=== PATIENT | female | born 1930 | race Caucasian/White ===

== ENCOUNTER 2018-11-22 12:23 | Inpatient (IN) ==
--- NOTE | 2018-11-22 12:47 | PROVIDER DOCUMENTATION ---
HPI-General Adult - General Stated Complaint: N/V, HIP/BACK PAIN Time Seen by Provider: 11/22/18 12:37 Source: patient Allergies/Adverse Reactions: Patient Allergies Allergy/AdvReac Type Severity Reaction Status Date / Time codeine [Codeine] Allergy Intermediate NAUSEA/VOMI Verified 11/22/18 14:47 TING iodine Allergy Intermediate SWELLING Verified 11/22/18 14:47 lidocaine Allergy Intermediate Unknown Verified 11/22/18 14:47 meperidine HCl * Allergy Intermediate NAUSEA/VOMI Verified 11/22/18 14:47 [From Demerol] TING mepivacaine HCl * Allergy Intermediate Unknown Verified 11/22/18 14:47 [From Carbocaine] morphine Allergy Intermediate NAUSEA/VOMI Verified 11/22/18 14:47 TING Penicillins Allergy Intermediate SWELLING Verified 11/22/18 14:47 procaine HCl * Allergy Intermediate Unknown Verified 11/22/18 14:47 [From Novocain] Sulfa (Sulfonamide Allergy Intermediate RASH Verified 11/22/18 14:47 Antibiotics) Home Medications: Home Medication List Medication Instructions Recorded Confirmed Last Taken Type Levothyroxine [Synthroid] 75 mcg PO DAILY 07/11/12 11/22/18 11/22/18 History Simvastatin [Zocor] 1 tab PO HS 07/11/12 11/22/18 11/21/18 History Sotalol [Betapace] 40 mg PO BID 07/11/12 11/22/18 11/22/18 History Potassium Chloride E.r. [Klor-Con] 10 meq PO DAILY 10/25/17 11/22/18 11/22/18 History Prednisone 2 mg PO DAILY 10/25/17 11/22/18 11/21/18 History Warfarin Sodium [Coumadin] 3 mg PO QHS 10/25/17 11/22/18 11/21/18 History - History of Present Illness -Gen Adult Nature of Presenting Problems: Pt. is 88 yof that presents with c/o right hip pain,CRAVEN and N/V after getting dizzy and falling. She reports she is on blood thinners and has A-fib. EMS reports patient vomited three times on the way here. Location of Pain/Injury: reports: head, pelvis. denies: none, face, mouth, neck, chest, upper extremity, hand(s), abdomen, back, genitalia, lower extremity, feet, upper body, lower body, generalized, other Pain Radiation: reports: no radiation. denies: arm(s), back, buttocks, chest, epigastric, feet, groin, jaw, flank (L), legs (lower), LLQ, LUQ, neck, periumbilical, flank (R), RLQ, RUQ, shoulder(s), scapula, scrotal, sternal notch, suprapubic, legs (upper), urethral, vaginal, other Quality of Pain: reports: aching. denies: burning, sharp, tightness Severity: reports: mild. denies: moderate, severe Onset/Duration: reports: abrupt, just prior to arrival Timing: reports: still present. denies: improving, intermittent, changing over time Context/Activities at Onset: reports: light activity, recent trauma history. denies: none, moderate activity, vigorous activity, recent emotional stress, recent physical stress, possible bad food, cold exposure, eating, out of country travel, rest, sleep, sexual activity, other Modifying Factors: improves with: immobilization. worse with: movement Associated Symptoms: reports: headaches, joint pain (Right hip), nausea, vomiting. denies: denies symptoms, anxiety, arm pain, back/neck pain, chest pain, constipation, cough, diaphoresis, diarrhea, dizziness, EENT symptoms, fatigue, fever/chills, genitourinary problems, heartburn, loss of appetite, malaise, muscle aches, sinus congestion/drainage, rash, seizure, shortness of breath, sensory/motor loss, pain with inspiration, swelling/mass in abdomen, syncope, weakness, trouble walking, other Similar Symptoms Previously?: No Recently seen or treated by another doctor?: No Review of Systems - Adult - REVIEW OF SYSTEMS - ADULT Constitutional: reports: no symptoms reported Eyes: reports: no symptoms reported Ears, Nose, Mouth & Throat: reports: no symptoms reported Cardiovascular: reports: see HPI, syncope. denies: chest pain, heart murmur, orthopnea Respiratory: reports: no symptoms reported Gastrointestinal: reports: see HPI, nausea, vomiting. denies: hematemesis, diarrhea, difficulty swallowing Genitourinary: reports: no symptoms reported Musculoskeletal: reports: see HPI, joint pain (Right hip). denies: back pain, muscle aches, neck pain Integumentary: reports: no symptoms reported Neurological: reports: see HPI, dizziness/vertigo, headache/migraines, syncope. denies: numbness, seizure, tremors Psychiatric: reports: no symptoms reported Past History - Adult - PAST MEDICAL HISTORY-ADULT Review of Records: reports: Old Records Reviewed, Nursing Assessment Review, Medications Reviewed, Social history reviewed & non-contributory. Major Childhood Illnesses: reports: denies history Cardiovascular: reports: HTN Respiratory: reports: COPD Gastrointestinal: reports: denies history Obstetrical/Gynecological: reports: denies history Genitourinary: reports: chronic UTI's Musculoskeletal: reports: denies history Neurological: reports: denies history Endocrine/Immune: reports: thyroid disorder Other Conditions: reports: denies history - PRIOR SURGERIES/PROCEDURES Surgical/Procedure History: reports: hysterectomy, breast - IMMUNIZATION STATUS Childhood Immunizations: See Nurse Assessment Flu Vaccine: See Nurse Assessment - FAMILY HISTORY Family History: reviewed, not pertinent - SOCIAL HISTORY Smoking: non-smoker Physical Exam-General - PHYSICAL EXAM-ADULT Initial Vital Signs Reviewed: Yes - CONSTITUTIONAL General Appearance: alert, moderate distress. negative: anxious, slow to respond, obtunded, combative - EYES Eyes: PERRL/EOMI, pink conjunctivae - HEAD, EARS, NOSE, MOUTH & THROAT HENMT: normocephalic/atraumatic, moist mucous membranes - NECK Neck: non-tender, full range of motion, supple, normal inspection - RESPIRATORY Respiratory: lungs clear, normal breath sounds - CARDIOVASCULAR Cardiovascular: normal peripheral pulses, no edema, irregularly irregular - GASTROINTESTINAL (ABDOMEN) Abdominal Exam: normal bowel sounds, non tender, soft - LYMPHATIC Lymphatic: no adenopathy - MUSCULOSKELETAL Back Exam: normal inspection, no CVA tenderness, no vertebral tenderness Extremity: tenderness (Right hip). negative: deformity, erythema, swelling Peripheral Pulses: radial (R): 2+, radial (L): 2+ - SKIN Integumentary: normal color, normal turgor, warm/dry - NEUROLOGIC Neurologic: grossly normal, no motor/sensory deficits - PSYCHIATRIC Psych/Mental Status: normal mood/affect, normal thought content, normal thought process, oriented x 3. negative: anxious, paranoid, tearful Progress - PLAN OF CARE/RESULTS Progress/Plan/Lab Results: Orders Category Date Time Status Saline Loc NOW Care 11/22/18 12:43 Active CHEST-1 VIEW [RAD] Stat Exams 11/22/18 12:[address] HEAD/C-SPINE W/O CONTRAST [CT] Stat Exams 11/22/18 12:[address] PELVIS W/O CONTRAST [CT] Stat Exams 11/22/18 12:45 Ordered CBC WITH ELECTRONIC DIFF [HEME] Stat Lab 11/22/18 12:44 Uncollected CK PROFILE [SP CHEM] Stat Lab 11/22/18 12:44 Uncollected COMPREHENSIVE METABOLIC PANEL [CHEM] Stat Lab 11/22/18 12:44 Uncollected PROTIME WITH INR [COAG] Stat Lab 11/22/18 12:44 Uncollected PTT [COAG] Stat Lab 11/22/18 12:44 Uncollected TROPONIN T Stat Lab 11/22/18 12:44 Uncollected URINALYSIS W/POSS RFLX CULT [URINALYSIS] Stat Lab 11/22/18 12:44 Uncollected EKG [EKG] Stat Ther 11/22/18 12:43 Ordered Result Diagrams: 11/22/18 13:40 11/22/18 13:40 - EKG 1 Time of EKG reading by physician:: 13:52 EKG Read and Signed by:: Lamont Wilson EKG Interpretation (*Must complete 3 of following elements*): Abnormal Rate: 91 Rhythm: A-fib - XRAY 1 XRAY Study: Chest ([facility] - [id number] [place] [address] - [address] [place] [address] Department of Imaging Patient: WAGNER LEAL JO Date: 11/22/18MR#: [id number] : 1930DM Status: PRE ERAcct#: [id number] Age/Sex: 88/FRoom/Bed: Loc: ED Ordering Physician: Jessica Wright Family Physician: Renee Lopez MD Reason for Procedure: Fall ___ Signed EXAM: CHEST-1 VIEW 11/22/2018 HISTORY: Fall TECHNIQUE: AP upright at 1313 COMMENT: There are platelike opacities in both lung bases which were not present on 01/15/2014. IMPRESSION: Bibasilar atelectasis. Electronically signed by Dallas Scott 11/22/2018 1:26 PM 11/22/18 1326 Interpreting Physician: Dallas Scott MD Dictated Date/Time: 11/22/18 1325 cc: Jessica Wright; Renee Lopez MD) XRAY Interpretation: See note - CT/MRI 1 CT Study: Cervical Spine ([facility] - [address] [facility], [address], [place] [address] [facility] - [address] [place] [address] Department of Imaging Patient: WAGNER LEALADM Date: 11/22/18MR#: [id number] : 1930DM Status: PRE ERAcct#: [id number] Age/Sex: 88/FRoom/Bed: Loc: ED Ordering Physician: Jessica Wright Family Physician: Renee Lopez MD Reason for Procedure: Fall hit head on blood thinners Signed EXAM : CT HEAD/C-SPINE W/O CONTRAST HISTORY: Fall hit head on blood thinners TECHNIQUE: 1. CT head without contrast 2. CT cervical spine without contrast COMPARISON: None. FINDINGS: Head: No parenchymal hemorrhage. No epidural or subdural hematoma. No subarachnoid hemorrhage. There is atrophy. No mass identified on this noncontrasted exam. No hydrocephalus. No skull fracture. Cervical spine: Mild scoliosis. No precervical soft tissue swelling. No subluxation. No fracture. The bones are osteopenic. Mild degenerative changes. Atherosclerosis. IMPRESSION: Head: No hemorrhage. No injury. Cervical spine: No acute fracture. This exam was performed using automated exposure control, adjustment of mA or kV according to patient size, and/or use of iterative reconstruction technique. Electronically signed by Jacoby Brady 11/22/2018 1:18 PM 11/22/18 1318 Interpreting Physician: Jacoby Brady MD Dictated Date/Time: 11/22/18 1315 cc: Jessica Medrano; Renee Lopez MD), Head CT Results: See note 2 CT Study: Pelvis ([facility] - [address] [facility] [address], [address], [place] [address] [facility] - [address] [place] [address] Department of Imaging Patient: WAGNER LEAL Date: 11/22/18#: [id number] : 1930DM Status: PRE ERAcct#: [id number] Age/Sex: 88/FRoom/Bed: Loc: ED Ordering Physician: Jessica Wright Family P hysician: Renee Lopez MD Reason for Procedure: Fall with hip pain Signed CT PELVIS W/O CONTRAST - 11/22/2018 INDICATION: Fall with hip pain COMPARISON: 07/28/2012 FINDINGS: There is no fracture or dislocation. There is moderate degeneration of the sacroiliac joints and symphysis pubis. Hip joint spaces are preserved. There is mild degeneration of the lower lumbar spine. Soft tissues are clear. IMPRESSION: No acute injury. This exam was performed using automated exposure control, adjustment of mA or kV according to patient size, and/or use of iterative reconstruction technique Electronically signed by Blayne Tapia 11/22/2018 1:20 PM 11/22/18 1320 Interpreting Physician: Blayne Tapia MD Dictated Date/Time: 11/22/18 1316 cc: Jessica Wright; Renee Lopez MD) CT Results: See note - CONSULTS/PCP/HOSPITALIST Notification #1 *Consult/PCP/Hospitalist*: Dr. Lopez Time Discussed: 15:01 Reason/Comments: Admission Consult Disposition: Will see in ED, Admit Departure - Departure Date of Disposition Decision: 11/22/18 Time of Disposition Decision: 14:50 DIAGNOSIS: Near syncope, Dizziness A-fib Qualifiers: Atrial fibrillation type: unspecified Qualified Code(s): I48.91 - Unspecified atrial fibrillation Fall Qualifiers: Encounter type: initial encounter Qualified Code(s): W19.XXXA - Unspecified fall, initial encounter Disposition: ADMITTED INPATIENT 09 Certified Medical Emergency: Emergent Condition: Stable Referrals and Follow-Ups: Renee Lopez MD [Primary Care Provider] - - Critical Care Note This patient required my direct & personal management of CC.: No Attestation - Physician/ MONIQUE Attestation Patient care was provided by Advanced Practice Provider:: Yes Advanced Practice Provider:: Jessica Wright Advanced Practice Provider documentation review:: The Mid-level provider documentation, treatment plan and medical decision making was reviewed by the physician who agrees with all treatment and medical decision making by the MLP. The physician spent face to face time with patient:: No Advanced Practice Provider documentation review:: Supervising physician onsite and consulted in the evaluation and care of this patient. The physician did not have a face to face encounter with the patient.
--- NOTE | 2018-11-22 13:20 | Diag Imaging Result Doc PS360 ---
EXAM : CT HEAD/C-SPINE W/O CONTRAST HISTORY: Fall hit head on blood thinners TECHNIQUE: 1. CT head without contrast 2. CT cervical spine without contrast COMPARISON: None. FINDINGS: Head: No parenchymal hemorrhage. No epidural or subdural hematoma. No subarachnoid hemorrhage. There is atrophy. No mass identified on this noncontrasted exam. No hydrocephalus. No skull fracture. Cervical spine: Mild scoliosis. No precervical soft tissue swelling. No subluxation. No fracture. The bones are osteopenic. Mild degenerative changes. Atherosclerosis. IMPRESSION: Head: No hemorrhage. No injury. Cervical spine: No acute fracture. This exam was performed using automated exposure control, adjustment of mA or kV according to patient size, and/or use of iterative reconstruction technique. Electronically signed by Jacoby Brady 11/22/2018 1:18 PM
--- NOTE | 2018-11-22 13:23 | Diag Imaging Result Doc PS360 ---
CT PELVIS W/O CONTRAST - 11/22/2018 INDICATION: Fall with hip pain COMPARISON: 07/28/2012 FINDINGS: There is no fracture or dislocation. There is moderate degeneration of the sacroiliac joints and symphysis pubis. Hip joint spaces are preserved. There is mild degeneration of the lower lumbar spine. Soft tissues are clear. IMPRESSION: No acute injury. This exam was performed using automated exposure control, adjustment of mA or kV according to patient size, and/or use of iterative reconstruction technique Electronically signed by Blayne Tapia 11/22/2018 1:20 PM
--- NOTE | 2018-11-22 13:28 | Diag Imaging Result Doc PS360 ---
EXAM: CHEST-1 VIEW 11/22/2018 HISTORY: Fall TECHNIQUE: AP upright at 1313 COMMENT: There are platelike opacities in both lung bases which were not present on 01/15/2014. IMPRESSION: Bibasilar atelectasis. Electronically signed by Dallas Scott 11/22/2018 1:26 PM
[2018-11-22 14:03] LABS: BASO# 0.01 X1000 (0.0-0.2); BASO% 0.1 % (0.0-0.8); EOS# 0.05 X1000 (0.0-0.7); EOS% 0.5 % (0.0-10.0); HEMATOCRIT 45.7 % (37.0-47.0); HEMOGLOBIN 14.9 g/dL (12.0-16.0); IMM GRAN# 0.03 X1000 (0.0-0.04); IMM GRAN% 0.3 % (0.0-0.5); LYMPH# 0.99 X1000 (1.2-3.4); LYMPH% 10.3 % (20.5-51.1); MCH 31.9 PG (27-31); MCHC 32.6 g/dL (33-37); MCV 97.9 FL (81-99); MONO# 0.59 X1000 (0.11-0.59); MONO% 6.1 % (1.7-9.3); MPV 10.5 FL (7.4-10.4); NEUT# 7.93 X1000 (1.4-6.5); NEUT% 82.7 % (42.2-75.2); PLT 163 X1000 (130-400); RBC 4.67 XMIL (4.2-5.4); RDW 12.4 % (11.5-14.5)
[2018-11-22 14:07] LABS: INR 1.84; PROTIME 21.7 Seconds (11.0-16.0)
[2018-11-22 14:08] LABS: PTT 34.8 Seconds (22.3-41.8)
[2018-11-22 14:13] LABS: AGAP 8; ALB/GLOB RATIO 1.6; ALBUMIN 3.9 g/dL (3.5-5.0); ALKALINE PHOSPHATASE 53 U/L (32-104); BUN 13 mg/dL (8-22); CHLORIDE 104 mmol/L (98-107); CK PROFILE 35 U/L (24-173); COSMO 279; CREATININE 0.5 mg/dL (0.5-0.9); ESTIMATED GFR > 60; GLUCOSE 128 mg/dL (70-104); GOT 24 U/L (10-30); GPT 19 U/L (10-36); POTASSIUM 4.5 mmol/L (3.5-5.1); SODIUM 139 mmol/L (136-145); TCO2 27 mmol/L (25-35); TOTAL BILIRUBIN 1.05 mg/dL (0.20-1.00); TOTAL PROTEIN 6.3 g/dL (6.3-8.3)
[2018-11-22 14:38] LABS: URINE SOURCE CATH
[2018-11-22 14:44] LABS: BILIRUBIN URINE NEGATIVE (NEGATIVE); BLOOD URINE NEGATIVE (NEGATIVE); COLOR YELLOW; GLUCOSE URINE NEGATIVE (NEGATIVE); KETONE URINE 20 mg/dL (NEGATIVE); LEUKOCYTES URINE NEGATIVE (NEGATIVE); NITRITE URINE NEGATIVE (NEGATIVE); PH URINE 6.5; PROTEIN URINE NEGATIVE (NEGATIVE); SP GRAVITY URINE 1.017; TURBIDITY URINE CLEAR (CLEAR); UROBILINOGEN URINE NORMAL (NORMAL)
[2018-11-22 14:46] LABS: UR EPITHELIAL CELLS <10 /HPF (<10); URINE BACTERIA NEGATIVE /HPF; URINE RBC <10 /HPF (<10); URINE WBC <10 /HPF (<10)
[2018-11-22] MEDS ORDERED: NS 1,000 ML IV ONE ×2 (15:01→20:12)
[2018-11-22] MEDS ORDERED: ZOFRAN IV PRN (15:01)
--- NOTE | 2018-11-22 15:04 | EKG Report ---
Test Performed on : 11/22/2018 1:52:34 PM Test Reason : CP Blood Pressure : / mmHG Vent. Rate : 091 BPM Atrial Rate : 097 BPM P-R Int : 000 ms QRS Dur : 074 ms QT Int : 366 ms P-R-T Axes : 000 024 -02 degrees QTc Int : 450 ms Atrial fibrillation. with a competing junctional pacemaker. Nonspecific ST abnormality Abnormal ECG No previous ECGs available Unconfirmed Result
[2018-11-22] MEDS ORDERED: COUMADIN PO SCH (21:00)
[2018-11-22] MEDS: BETAPACE PO SCH (23:22)
--- NOTE | 2018-11-23 05:31 | HISTORY AND PHYSICAL ---
CHIEF COMPLAINT: Nausea, vomiting, hip pain, back pain. HISTORY OF PRESENT ILLNESS: She is an 88-year-old white female living in assisted living. Came here with accidental fall and sustained hip pain, back pain. The patient has been on Coumadin, unable to ambulate, and seen in the hospital emergency room. All the workup was negative. Admitted to the hospital for observation and ambulation. I did see the patient on the floor. Denies of any headache, lower back pain. No weakness in the legs. She was accidentally tripped on the [employer] rug and fell backwards and had a head injury and back injury. All the workup was negative. PAST MEDICAL HISTORY: Hypertension, hyperlipidemia, hypothyroidism, osteopenia, lumbar spondylosis, paroxysmal atrial fibrillation, polymyalgia rheumatica. PAST SURGICAL HISTORY: Bilateral cataract surgery, tonsillectomy, thyroidectomy, reduction procedures of both breasts, appendectomy, cholecystectomy, complete hysterectomy, bilateral cataract surgery, vaginal hysterectomy, lumbar spine diskectomy, right and left shoulder surgery, carpal tunnel on the right side. ALLERGIES: Reported to aspirin, bandages, codeine, Demerol, Levaquin penicillin, sulfa. SOCIAL HISTORY: She is a nurse, retired. Living in assisted living. History of smoking off and on. No alcohol. , 4 children. FAMILY HISTORY: Father of heart attack. Mother had a stroke at 78. MEDICINES: 1. Simvastatin 20 daily. 2. Sotalol 40 p.o. b.i.d. 3. Synthroid 75 mcg daily. 4. Potassium 10 mEq daily. 5. Prednisone 10 mg daily. 6. Warfarin 3 mg at bedtime. HEALTH MAINTENANCE: Flu vaccine 2017. Last mammography 2016. DEXA 2014. Colonoscopy 2008. REVIEW OF SYSTEMS: HEENT: No headache. No vision problem. Neck: No neck pain. No goiter. Cardiopulmonary: No chest pain, shortness of breath, PND, orthopnea. Gastrointestinal: No nausea, vomiting, abdominal pain. Genitourinary: No history of hesitancy, frequency, dysuria. No swelling of legs. No joint pain. Neurologic: No focal symptoms or weakness. PHYSICAL EXAMINATION: VITAL SIGNS: Temperature 97.7 degrees, pulse 84, blood pressure 122/75. 5 feet 2 inches, 136 pounds. HEENT: Atraumatic, normocephalic. Pupils equal, reactive to light. TMs are normal. Nose and throat within normal limits. NECK: Supple. No lymphadenopathy. No goiter. CHEST: Bilateral air entry. HEART: Sounds irregular. ABDOMEN: Belly is soft, nontender. Good bowel sounds. EXTREMITIES: No peripheral edema, cyanosis. No obvious external injuries. NEUROLOGIC: Nonfocal exam. INVESTIGATIONS: CBC: White cell count 9.6, hematocrit 45, platelet 163,000. PT 21, INR 1.8. SMA-7 is normal. Glucose 128. LFTs, cardiac enzymes were normal. Urinalysis has trace ketones, but otherwise stable. Pelvic CT, no acute injury. Chest x-ray, bibasilar atelectasis. CT head, no hemorrhage, no injury. C-spine, no acute bony injury. EKG: Atrial fibrillation. Nothing acute. ASSESSMENT AND PLAN: 1. An 88-year-old, white female admitted to the hospital with head injury, back injury, unable to ambulate. She is on Coumadin. Basically, head injury protocol. Neuro checks. Incentive spirometry. 2. Polymyalgia rheumatica on prednisone 2 mg daily. Gentle hydration. 3. Hypothyroidism. Synthroid. 4. Atrial fibrillation, on Coumadin 3 mg at bedtime along with Betapace. 5. Hyperlipidemia, on simvastatin. 6. Initiate vaccination protocol prior to the discharge. 7. If stable, will discharge tomorrow to the assisted living facility. cc: Ruiz Lopez MD
[2018-11-23] MEDS: SYNTHROID PO SCH ×2 (05:39→06:21)
[2018-11-23 07:51] VITALS: BP 117/65
[2018-11-23] MEDS: BETAPACE PO SCH (08:45)
[2018-11-23] MEDS ORDERED: KLOR-CON PO SCH (09:00)
[2018-11-23] MEDS ORDERED: PREDNISONE PO SCH (09:00)
[2018-11-23] MEDS ORDERED: ZOCOR PO SCH (21:00)
--- NOTE | 2018-11-25 05:05 | DISCHARGE SUMMARY ---
ADMISSION DATE: 11/22/2018 DISCHARGE DATE: 11/23/2018 DISCHARGING DIAGNOSIS: History of head injury, stable. OTHER DIAGNOSES: 1. Hypertension. 2. Hyperlipidemia. 3. Hypothyroidism. 4. Osteopenia. 5. Lumbar spondylosis. 6. PAF. 7. Polymyalgia rheumatica. BRIEF HISTORY: Please see the H and P that was done on 11/22/2018. In brief, she is an 88-year- old white female living in assisted living. She had a fall by accident, had fallen backwards and hit the pelvis, lower back, and head. The patient was on Coumadin. Emergency Room workup was essentially unremarkable. The patient was not able to ambulate. Basically, admitted for observation for head injury and concussion protocol. Initial workup was negative. Follow up on neuro checks. The patient is doing very well. I did not see any external bruises or lacerations. LABORATORY: CBC: White cell count 9.6, hematocrit 45.7, and platelets 163,000. PT 21, INR 1.84. SMA 7 is normal. Glucose 128. Liver function tests and cardiac enzymes are normal. Urinalysis is clear. CT head, CT-spine, and pelvic CT unremarkable. EKG: The patient is in atrial fibrillation, rate is well controlled. DISPOSITION: The patient has been discharged home in stable condition. DISCHARGE INSTRUCTIONS: 1. Continue to monitor outpatient. Head injury protocol. 2. Zocor 20 mg daily. 3. Betapace 40 p.o. b.i.d. 4. Synthroid 75 mcg daily. 5. Potassium 10 mEq daily. 6. Prednisone 10 mg daily. 7. Warfarin 3 mg at bedtime. 8. Follow up in my office. 9. The patient already received influenza vaccine in November of 2018. cc: Ruiz Lopez MD
== END 2018-11-23 10:29 | DRG 914 ==
LOC: SUPCPDRO → ED 12:23 → 3N 17:25
PROVIDERS: ADMIT Internal Medicine; ATTEND Internal Medicine